=== PATIENT | male | born 1960 | race Caucasian/White ===

== ENCOUNTER → 2016-07-11 | Outpatient (CLI) | payer BC ==
[~2016-07-11] MED LIST: AMLODIPINE BESY10 MG PO; LISINOPRIL10 MG PO
--- NOTE | ~2016-07-11 | CR229 ---
[facility] A Service of [facility] & [facility] RADIOLOGY TEXT RESULTS PATIENT: HENNY GUTIERREZ JR LOCATION: [facility] : 60 UNIT #: [id number] AGE: [address]: JONATAN KENDALL MD SEX: M ORDER DR: [id number] [facility] [address] [place], [place] [address] [id number] O MR#: [id number] Acc #: [id number] NAME: HENNY GUTIERREZ : 1960 SEX: M STUDY DATE/TIME: 07/11/2016 15:12 UNIT: [facility] ROOM: STUDY DESCRIPTION: CR Shoulder Min 2 View Lt Attending Physician: Jonatan Kendall M.D. Referring Physician: Jonatan Kendall M.D. Ordering Physician: Jonatan Kendall M.D. Primary Care Physician: Jonatan Kendall M.D. MEDICAL IMAGING REPORT This report is preliminary unless electronic signature is present EXAM Left shoulder, 2 views, 07/11/2016. HISTORY Left shoulder pain for 6 months with no known injury. FINDINGS AP view with internal and external rotation of the shoulder girdle shows satisfactory relationship of the humeral head and glenoid fossa. The joint space is normal. There is no identifiable fracture or dislocation or bony destructive process about the shoulder girdle anatomy. The acromioclavicular joint is normal. There is no radiopaque foreign body in the region. IMPRESSION Normal shoulder. Dictated by... Joseluis Person M.D. THIS IS AN ELECTRONICALLY VERIFIED REPORT Joseluis Person M.D. at 07/12/2016 8:12 AM MARCIAL/daphne TD: 07/11/2016 16:11 JOB #: [id number] MEDICAL IMAGING REPORT Page 1 of 1 COPY
== END | disposition home or self-care (01) ==
LOC: CRAD 14:53
DX: M25.512 Pain in left shoulder (principal)
CPT/HCPCS: 73030